=== PATIENT | female | born 1990 | race Hispanic/Latino ===

== ENCOUNTER 2018-01-06 01:03 | Emergency (ER) | payer SELFPAY ==
[2018-01-06 01:23] VITALS: RESP 18
[2018-01-06] MEDS ORDERED: Tdap Vaccine 0.5 ml Vial (10-64 yrs) IM ONE ×2 (01:49→07:30)
[2018-01-06] MEDS ORDERED: Bacitracin 500 Units/gm Oint Foilpak UD TOP ONE (01:49)
--- NOTE | 2018-01-06 03:01 | ED PDOC ---
HPI: Trauma/Fall - HPI Time Seen by Provider: 01/06/18 01:40 Chief Complaint (Nursing): Trauma Chief Complaint (Provider): Head Injury History Per: Patient, EMS, Other (friend) History/Exam Limitations: intoxication Onset/Duration Of Symptoms: Mins (prior to arrival) Additional Complaint(s): Alix Garland is a 27 year old female with no past medical history, who was brought to the ER by EMS for evaluation of head injury, s/p fall prior to arrival. History was obtained from friend at bedside, who witnessed the fall. Friend states that patient was intoxicated coming out of the bar, and missed a step which caused her to fall forward, face down and hit her head on an iron gate. Patient reports a few seconds of loss of consciousness, but no convulsive activity was experienced. Patient has knee swelling and wound to forehead. She denies any nausea, vomiting, focal weakness, or blurry vision. PMD: none provided - Fall Fall:Prior To Injury: Passed Out, Tripped, Lost Balance Past Medical History Reviewed: Historical Data, Nursing Documentation, Vital Signs Vital Signs: Last Vital Signs Temp 97.8 F 01/06/18 01:16 Pulse 77 01/06/18 01:16 Resp 18 01/06/18 01:16 BP 118/78 01/06/18 01:16 Pulse Ox 96 01/06/18 01:16 - Medical History PMH: No Chronic Diseases - Surgical History Surgical History: No Surg Hx - Family History Family History: States: Unknown Family Hx - Social History Alcohol: Social Drugs: Denies - Allergies Allergies/Adverse Reactions: Allergies Allergy/AdvReac Type Severity Reaction Status Date / Time No Known Allergies Allergy Verified 01/06/18 01:15 Review of Systems ROS Statement: Except As Marked, All Systems Reviewed And Found Negative Constitutional: Positive for: Other (wound on forehead) Eyes: Negative for: Vision Change, Other (blurry vision) Gastrointestinal: Negative for: Nausea, Vomiting Musculoskeletal: Positive for: Other (knee swelling) Neurological: Positive for: Other (loss of consiousness, no focal weakness) Physical Exam - Reviewed Nursing Documentation Reviewed: Yes Vital Signs Reviewed: Yes - Physical Exam Appears: Negative for: Well (she is intoxicated) Head Exam: Negative for: ATRAUMATIC ((+) superficial irregular stellate puncture wound to right lateral eyebrow, approximated haemostatic, does not gape with tension ) Eye Exam: Positive for: Other (periorbital ecchymosis) Extremity: Positive for: Normal ROM (full ROM of lower extremities, no laxity), Tenderness (bilateral patellas: mild tenderness to palpation), Other (bilateral knees: diffuse edema, ecchymosis and superficial abrasions ) Neurologic/Psych: Positive for: Oriented (x2), Other (slurred speech, lethargic) . Negative for: Motor/Sensory Deficits - ECG O2 Sat by Pulse Oximetry: 96 (RA) Pulse Ox Interpretation: Normal Medical Decision Making Medical Decision Making: Time: 1:48 Impression: Fall, head injury, bilateral knee injury, alcohol intoxication Differentials (including but not limited to): Knee fractures, Traumtaic brain injury Plan: --CT Head --ED Urine --ED Urine Dipstick --X-Ray Knees --Adacel 0.5 ml IM --Bacitracin Bilater knee xrays: No fx/dislcoation EXAM: CT Head Without Intravenous Contrast EXAM DATE/TIME: 01/06/2018 1:48 AM CLINICAL HISTORY: 27 years old, female; Injury or trauma; Fall; Initial encounter; Blunt trauma ( contusions or hematomas); Consciousness not specified; Additional info: Head injury TECHNIQUE: Axial computed tomography images of the head/brain without intravenous contrast. All CT scans at this facility use one or more dose reduction techniques, viz.: automated exposure control; ma/kV adjustment per patient size (including targeted exams where dose is matched to indication; i.e. head); or iterative reconstruction technique. Coronal and sagittal reformatted images provided and reviewed. COMPARISON: No relevant prior studies available. FINDINGS: Brain: No intracranial hemorrhage. No significant white matter disease. No evidence of evolved territorial infarct. No mass effect or midline shift. Ventricles: Unremarkable. No ventriculomegaly. Bones/joints: No acute osseous abnormality. Soft tissues: No soft tissue swelling. Sinuses: Visualized paranasal sinuses are clear. Mastoid air cells: Mastoid air cells are well-aerated. IMPRESSION: No acute findings. Thank you for allowing us to participate in the care of your patient. Dictated and Authenticated by: Nigel Snyder MD 01/06/2018 5:38 AM Eastern Time ([place] & [place]) Scribe Attestation: Documented by Vanessa Wilcox acting as a scribe for Michell Sheets MD. Scribe Attestation: All medical record entries made by the Scribe were at my direction and personally dictated by me. I have reviewed the chart and agree that the record accurately reflects my personal performance of the history, physical exam, medical decision making, and the department course for this patient. I have also personally directed, reviewed, and agree with the discharge instructions and disposition. Disposition - Clinical Impression Clinical Impression: Head injury, Knee contusion, Alcohol intoxication - Patient ED Disposition Is Patient to be Admitted: Transfer of Care - Disposition Referrals: [facility] [Outside] (PLEASE FOLLOW UP IN 2-3 DAYS WITH YOUR DOCTOR OR [facility] FOR REEVALUATION) Disposition: Transfer of Care Disposition Time: 07:00 Condition: IMPROVED Instructions: Concussion in Adults, Alcohol Use - When Is Drinking a Problem?, Closed Head Injury, Contusion (DC) Forms: [employer] ([place]) Patient Signed Over To: Marvin Blount III (pending sobriety)
--- NOTE | 2018-01-06 07:06 | ED PDOC ---
- ECG O2 Sat by Pulse Oximetry: 96 (RA) Pulse Ox Interpretation: Normal Medical Decision Making Medical Decision Making: recd 7am on endorsement from dr christian pending sobriety On rounds patient moving all extremities, remains somnolent, significant other at bedside 0745 ambulated to BR without difficulty, DC from ED, wound re-evaluated without evidence of gaping or dehisence, bacitracin applied with sample and instructions given CT results again discussed Disposition - Clinical Impression Clinical Impression: Head injury, Knee contusion, Alcohol intoxication, Facial abrasion - POA Present On Arrival: None - Disposition Referrals: [facility] [Outside] (PLEASE FOLLOW UP IN 2-3 DAYS WITH YOUR DOCTOR OR [facility] FOR REEVALUATION) Disposition: Routine/Home Disposition Time: 07:47 Condition: IMPROVED Additional Instructions: Recommend warm soapy water to facial wound 2x daily for 5 days, bacitracin ointment 2x daily. Use moisturizer and sun protection thereafter to help minimize scar. Instructions: Concussion in Adults, Alcohol Use - When Is Drinking a Problem?, Skin Abrasions, Closed Head Injury, Contusion (DC) Forms: [employer] ([place])
[2018-01-06 07:38] VITALS: BP 110/62; PULSE 88; TEMP 98
[2018-01-06 09:03] VITALS: O2SAT 96
--- NOTE | 2018-01-06 10:32 | RAD ---
PROCEDURE: Bilateral Knee Radiographs. HISTORY: fall intoxicated marked edema bilateral anterior COMPARISON: None. FINDINGS: BONES: Right Knee: No acute fracture. Left Knee: No acute fracture. JOINTS: Right Knee: Unremarkable. Left knee: Unremarkable. SOFT TISSUES: Right Knee: Mild prepatellar soft tissue swelling. Left Knee: Mild prepatellar soft tissue swelling. JOINT EFFUSION: Right Knee: None. Left Knee: None. OTHER FINDINGS: None. IMPRESSION: No demonstrated fracture or dislocation.
--- NOTE | 2018-01-06 10:59 | CT ---
PROCEDURE: CT HEAD WITHOUT CONTRAST. HISTORY: head injury COMPARISON: None available. TECHNIQUE: Axial computed tomography images were obtained through the head/brain without intravenous contrast. Radiation dose: Total exam DLP = 756.7 mGy-cm. This CT exam was performed using one or more of the following dose reduction techniques: Automated exposure control, adjustment of the mA and/or kV according to patient size, and/or use of iterative reconstruction technique. FINDINGS: HEMORRHAGE: No intracranial hemorrhage. BRAIN: No mass effect or edema. No atrophy or chronic microvascular ischemic changes. VENTRICLES: Unremarkable. No hydrocephalus. CALVARIUM: Unremarkable. PARANASAL SINUSES: Unremarkable as visualized. No significant inflammatory changes. MASTOID AIR CELLS: Unremarkable as visualized. No inflammatory changes. OTHER FINDINGS: None. IMPRESSION: No acute intracranial pathology.
== END 2018-01-06 08:00 | disposition home or self-care (01) ==
LOC: H.ER 01:03
DX: S00.81XA Abrasion of other part of head, initial encounter (principal); S80.00XA Contusion of unspecified knee, initial encounter; W01.0XXA Fall on same level from slipping, tripping and stumbling without subsequent striking against object, initial encounter; Y92.89 Other specified places as the place of occurrence of the external cause; F10.129 Alcohol abuse with intoxication, unspecified